=== PATIENT | male | born 1985 | race Asian ===

== ENCOUNTER 2019-02-09 12:22 | Outpatient (CLI) | payer OTHER | END 2019-02-09 23:59 | disposition home or self-care (01) | LOC: CARD DIAG 12:22 | PROVIDERS: ATTEND Orthopaedic Surgery | DX: I07.1 Rheumatic tricuspid insufficiency (principal); I25.9 Chronic ischemic heart disease, unspecified | CPT/HCPCS: 93306 ==

== ENCOUNTER 2019-04-14 10:10 | Outpatient (CLI) | payer OTHER | END 2019-04-14 23:59 | disposition home or self-care (01) | LOC: RAD 10:10 | PROVIDERS: ATTEND Orthopaedic Surgery | DX: M13.80 Other specified arthritis, unspecified site (principal) | CPT/HCPCS: 72170; 73070; 73090; 73564; 73590 ==